=== PATIENT | female | born 1995 | race Hispanic/Latino ===

== ENCOUNTER 2019-08-15 08:59 | Day surgery (SDC) | payer BC ==
[2019-08-15] MEDS ORDERED: Ringers Lactate 1,000 ML IV ONE (09:20)
[2019-08-15] MEDS ORDERED: CEFAZOLIN/SWI 1gm 1 GM/10 ML SYR ONE (09:20)
[2019-08-15 09:32] VITALS: O2SAT 100
--- NOTE | 2019-08-15 10:49 | P.HP ---
Date of Service: 08/15/19 PC: This 24-year-old female presents for incision and drainage of an abscess in the right groin. HPC: Patient has had pain in discomfort in her groin for about the last 6 weeks was so. Recently noticed a lump in that area as well increasing pain in discomfort. I saw her in the office and scheduled her today for incision, drainage, and possible biopsy of an enlarged lymph node. PMH: Negative PSHx: No prior surgeries SOC: No known allergies SYS REVIEW: No cough, wheeze, shortness of breath. No chest pain or palpitations. No urinary complaints. No other lumps that she has noticed. Good energy and apart from this discomfort is otherwise healthy. O/E awake alert vital signs are stable HEENT: Nonicteric no lymphadenopathy Chest: Chest movement equal bilaterally ABD: Soft nontender LOCO: Has a palpable mass approximate 2 cm in the right groin adjacent to a fluctuant area DATA: White cell count normal IMPRESSION: Abscess of the right groin PLAN: I will take her the operating room for incision, drainage, and indicated procedures of this abscess over right groin. We will most likely send the lymph node if it is enlarged for histopathology as well. The risks of this procedure have been discussed. The possibility of bleeding, infection, need for further surgeries and treatments were explained. She understands and wants us to proceed.
[2019-08-15] MEDS ORDERED: FENTANYL CITR 100 MCG/2 ML ONE (10:51)
[2019-08-15] MEDS ORDERED: MIDAZOLAM HCL 2 MG/2 ML INJ ONE (10:51)
[2019-08-15] MEDS ORDERED: LIDOCAINE 1% MPF 5 ML VIAL ONE (10:51)
[2019-08-15] MEDS ORDERED: propofoL 200 MG/20 ML VIAL IV ONE (10:51)
[2019-08-15] MEDS ORDERED: KETOROLAC 30 MG/ML INJ ONE (11:22)
[2019-08-15] MEDS ORDERED: ONDANSETRON 4 MG/2 ML VIAL ONE (11:22)
[2019-08-15 12:45] VITALS: BP 107/69; TEMP 97.2
--- NOTE | 2019-08-19 17:23 | P.OP ---
Preoperative diagnosis: Mass and abscess of the right groin Postoperative diagnosis: The same Primary procedure: Incision, drainage, and sharp debridement of abscess of the right groin Anesthesia: General Estimated blood loss: Less than 10 cc Specimen: Cultures sent Operative Technique: The patient brought the operating room placed supine on the table. After the induction of adequate general anesthesia there the right groin was prepped with a DuraPrep solution she is draped in usual aseptic manner. On palpating the groin there were felt to be a mass and just medial to this and area of fluctuance. This was just above the groin crease. After injection of 0.25% Marcaine. A skin incision was made. This brought down through the skin and subcutaneous tissue. We encounter date large amount of thick purulent material. There was no odor. There was aspirated from the Eliot wound after having taking cultures both aerobic and anaerobic from it. The wound was now palpated. It was felt to be smooth on the inside. Some necrotic debris and some hypertrophic scar was removed using and a cutting 11 blade as well is a cutting surgical curette. At this point the skin edges were loosely approximated with 1 absorbable suture. A 2. Nylon was placed into the wound and brought out more superiorly and tied on itself to keep the wound open and draining during the postoperative period. At the end of procedure the patient was in a stable condition when sent to the recovery room. Needle sponge instrument count were correct. Drain(s): Other (2/0 nylon) Transferred to: Recovery Room Condition: Good
== END 2019-08-15 13:10 | disposition home or self-care (01) ==
LOC: OR 08:59
PROVIDERS: ATTEND Surgery
PROC: 0J980ZZ Drainage of Abdomen Subcutaneous Tissue and Fascia, Open Approach (ICD-10-PCS; principal; 2019-08-15 10:30)
DX: L02.214 Cutaneous abscess of groin (principal); R22.2 Localized swelling, mass and lump, trunk
CPT/HCPCS: 87070; 87205; 81025; 87075; 10060; J2704; J2250; J3010; J0690; J7120; J2405